=== PATIENT | female | born 1990 | race Caucasian/White ===

== ENCOUNTER 2023-06-08 20:58 | Emergency (ER) | payer OTHER, SELFPAY ==
[2023-06-08 21:07] VITALS: BP 134/88; PULSE 93; RESP 20; TEMP 36.6; O2SAT 97; BMI 43.4
--- NOTE | 2023-06-08 23:32 | ED.BACK1 ---
HPI - Back Pain/Injury General Chief Complaint: Back Pain/Injury Stated Complaint: BACK INJURY Time Seen by Provider: 06/08/23 23:27 Source: patient Mode of arrival: walk-in Limitations: no limitations History of Present Illness HPI Narrative: She presents emergency department complaining of left lumbosacral sacral pain. She states she starting in the [employer] and she lifted up a heavy box approximately 50 pounds and she is rotated with Pete to set it in another place and since then developed pain to the left lumbosacral region. Patient states the pain radiates to her leg at times. She has taken [id number] medications without any relief. She denies any urinary, bowel incontinence, retention. She denies any fall or direct trauma to her back. She denies any fever, or chills. She denies any flank pain, hematuria, dysuria. Patient denies any lower extremity weakness. She denies any nausea, vomiting, diarrhea, constipation, or abdominal pain. She denies any chest, shortness of breath. She denies any upper respiratory infection symptoms. Related Data Home Medications Medication Instructions Recorded Confirmed lamotrigine 250 mg tablet,extended 250 mg PO DAILY 06/08/23 06/08/23 release 24 hr (Lamictal XR) lurasidone 120 mg tablet (Latuda) 120 mg PO DAILY 06/08/23 06/08/23 prazosin 2 mg capsule (Minipress) 2 mg PO DAILY 06/08/23 06/08/23 Previous Rx's Medication Instructions Recorded cyclobenzaprine 10 mg tablet 10 mg PO TID PRN muscle spasm 3 06/08/23 days #14 tabs ketorolac 10 mg tablet 10 mg PO Q8H PRN pain 5 days #14 06/08/23 tabs Allergies Allergy/AdvReac Type Severity Reaction Status Date / Time aripiprazole [From [facility]] Allergy tongue Verified 06/08/23 21:11 swells Review of Systems ROS Status of ROS 10 or more systems reviewed and unremarkable except as noted in history and below [facility] Social History Smoking status: Current every day smoker Exam Narrative Exam Narrative: Nurses notes and vital signs reviewed and patient is not hypoxic. General: Nontoxic, Well-appearing and in no apparent distress. Skin: Warm, dry, no pallor noted. No Rash Head: Normocephalic, atraumatic. Neck: Supple, non-tender. Eye: Pupils are equal, round and EOMI. No scleral icterus. Ears, Nose, Mouth, and Throat: TM clear, no posterior oropharynx erythema or nasal mucosal hypertrophy, uvula is mid-line Oral mucosa is moist Cardiovascular: Regular Rate and Rhythm without murmur, gallop or rub. Respiratory: No accessory muscle use or respiratory distress. Lungs are clear to auscultation, no wheezing, rales or rhonchi Chest Wall: no tenderness Back: No midline thoracic or lumbar vertebral tenderness. Tenderness to palpation to the lateral paraspinal muscles on the left and lumbosacral junction. No erythema, ecchymosis, signs of trauma, infection. No CVA tenderness Musculoskeletal: normal ROM, no calf or popliteal tenderness, no lower extremity edema/swelling GI: obese, Abdomen is soft, non-distended. Normal bowel sounds. No masses appreciated. No tenderness to palpation. No rebound, guarding, or rigidity noted. Neurological: A&O x4. No cranial nerve dysfunction observed. No truncal ataxia. Moves all extremities. Sensation intact. Psychiatric: Cooperative and interactive. Normal mood and affect. Constitutional Vital Signs, click to edit/add: Last Vital Signs Temp 97.8 F 06/08/23 21:07 Pulse 84 06/09/23 00:08 Resp 16 06/09/23 00:08 BP 134/88 06/09/23 00:08 Pulse Ox 95 06/09/23 00:08 O2 Del Method Room Air 06/09/23 00:08 Course Vital Signs Vital signs: Vital Signs Temperature 97.8 F 06/08/23 21:07 Pulse Rate 93 H 06/08/23 21:07 Respiratory Rate 20 06/08/23 21:07 Blood Pressure 134/88 06/08/23 21:07 Pulse Oximetry 97 06/08/23 21:07 Oxygen Delivery Method Room Air 06/08/23 21:07 Temperature 97.8 F 06/08/23 21:07 Pulse Rate 84 06/09/23 00:08 Respiratory Rate 16 06/09/23 00:08 Blood Pressure 134/88 06/09/23 00:08 Pulse Oximetry 95 06/09/23 00:08 Oxygen Delivery Method Room Air 06/09/23 00:08 MDM - Back Pain/Injury MDM Narrative Medical decision making narrative: Patient is given an injection of Toradol, and Norflex. She will be discharged home on Toradol and Flexeril as needed. Patient will be able to go back to work with 10-20 pound lifting restriction. She is to follow up with occupational health. There is no clinical indication for radiologic studies at this time. The patient does not have any signs of cord compression, or Cauda equina syndrome. At this time the patient is without objective evidence of an acute process requiring hospitalization or inpatient management. The patient has remained hemodynamically stable. No additional indication for emergent studies at this time. I answered all questions. Discussed discharge instructions including standard anticipatory guidance and what should prompt a return to the emergency department, including if they get worse are not getting better or develops any new or concerning symptoms. I've given them specific time frame in which to follow-up, and who to follow-up with. The patient demonstrates understanding. Patient is nontoxic and stable for discharge with outpatient follow-up. This note was created with the assistance of a speech recognition program. Although the intention is to generate documents that actually reflects the content of the visit, no guarantees can be provided that every mistake has been identified and corrected by editing. Discharge Plan Discharge Chief Complaint: Back Pain/Injury Clinical Impression: Strain of lumbar region Patient Disposition: Home, Self-Care Time of Disposition Decision: 23:38 Condition: Good Mode of Transportation: Private Vehicle Prescriptions / Home Meds: New ketorolac 10 mg tablet 10 mg PO Q8H PRN (Reason: pain) 5 Days Qty: 14 0RF cyclobenzaprine 10 mg tablet 10 mg PO TID PRN (Reason: muscle spasm) 3 Days Qty: 14 0RF No Action lurasidone [Latuda] 120 mg tablet 120 mg PO DAILY Rx Instructions: must administer with food (at least 350 calories) lamotrigine [Lamictal XR] 250 mg tablet extended release 24hr 250 mg PO DAILY prazosin [Minipress] 2 mg capsule 2 mg PO DAILY Instructions: Low Back Strain (ED) Stand Alone Forms: Portal Instructions Referrals: Occupational Therapy,Template, OT [Occupational Therapist] - 1 week Discharge Date/Time: 06/09/23 00:10
[2023-06-09] MEDS: ORPHENADRINE 60 MG/ 2 ML VIAL IM (00:03)
[2023-06-09] MEDS: KETOROLAC TROMETHAMINE 60 MG/2 ML VIAL IM (00:03)
[2023-06-09 00:08] VITALS: BP 134/88; PULSE 84; RESP 16; O2SAT 95
== END 2023-06-09 00:10 | disposition home or self-care (01) ==
PROVIDERS: Emergency Provider Emergency Medicine
DX: S39.012A Strain of muscle, fascia and tendon of lower back, initial encounter (principal); X50.0XXA Overexertion from strenuous movement or load, initial encounter
CPT/HCPCS: 96372; 99284

== ENCOUNTER 2023-07-11 19:11 | Emergency (ER) | payer OTHER, SELFPAY ==
[2023-07-11 19:18] VITALS: BP 146/102; PULSE 92; RESP 16; TEMP 36.7; O2SAT 100; BMI 39.9
--- NOTE | 2023-07-11 20:31 | CT_ITS ---
The [address] [address] Patient Name: ANNAMARIA GARCIA MRN: [facility]:[id number] date: 1990 Sex: F Assigned Patient Location: ER Current Patient Location: ER Accession/Order Number: [id number] Exam Date: 07/11/2023 20:45 Report Date: 07/11/2023 21:32 At the request of: LUIS GUILLERMO Procedure: CT lumbar spine wo con EXAM: CT lumbar spine wo con HISTORY: Lumbar radiculopathy COMPARISON: None. TECHNIQUE: Axial CT imaging is performed. Sagittal and coronal reformatted/reconstructed sequences were additionally performed. FINDINGS: Maintenance of the normal lumbar lordosis. Vertebral body heights and alignments exhibit no fracture or listhesis. Small annular bulges at L4-L5 and L5-S1. Calcification of the posterior annulus at L4-L5. At L5-S1, there is mild intervertebral disc space narrowing, endplate osteophytes and calcification of the posterior annulus. Mild narrowing of the left L5-S1 subarticular recess. No prevertebral soft tissue edema. The sacroiliac joints are unremarkable. IUD within the pelvis. No visualized free fluid or air. The visualized bowel is unremarkable. The visualized lung bases exhibit no gross abnormality. CT/CT lumbar spine wo con IMPRESSION: Chronic changes with no gross visualized acute irregularity. Electronically authenticated by: PRADEEP OWENS Date: 07/11/2023 21:32
--- NOTE | 2023-07-11 20:32 | ED.BACK1 ---
HPI - Back Pain/Injury General Chief Complaint: Back Pain/Injury Stated Complaint: Back Pain Time Seen by Provider: 07/11/23 20:24 Source: patient Mode of arrival: walk-in Limitations: no limitations History of Present Illness HPI Narrative: patient is a 32-year-old female presents to the emergency department for continued pain in the lumbar spine radiating to the thoracic spine. Patient was seen in this emergency department one month ago after she hurt her back lifting and twisting at work. She denies any falls or direct injuries. She was prescribed Flexeril and Toradol. She states she went back to work at the same level of activity she was doing before her injury. She states for the last week she has had an increase in pain. No new injuries or falls. She states the pain radiates down the back of her legs with occasional tingling of the toes. She is not concerned for . No medications taken prior to arrival this evening, she has been applying ice and heat without improvement. She does have an open Worker's Comp. case for this. she has had no abdominal pain, urinary symptoms or incontinence. Related Data Home Medications Medication Instructions Recorded Confirmed lamotrigine 250 mg tablet,extended 250 mg PO DAILY 06/08/23 06/08/23 release 24 hr (Lamictal XR) lurasidone 120 mg tablet (Latuda) 120 mg PO DAILY 06/08/23 06/08/23 prazosin 2 mg capsule (Minipress) 2 mg PO DAILY 06/08/23 06/08/23 Previous Rx's Medication Instructions Recorded cyclobenzaprine 10 mg tablet 10 mg PO TID PRN muscle spasm 3 06/08/23 days #14 tabs ketorolac 10 mg tablet 10 mg PO Q8H PRN pain 5 days #14 06/08/23 tabs hydrocodone 5 mg-acetaminophen 325 1 tab PO Q6H PRN pain #8 tabs 07/11/23 mg tablet methocarbamol 750 mg tablet 750 mg PO TID PRN pain #20 tabs 07/11/23 methylprednisolone 4 mg tablets in See Rx Instructions .Route 07/11/23 a dose pack (Medrol (Patrick)) .COMPLEX #21 ea Allergies Allergy/AdvReac Type Severity Reaction Status Date / Time aripiprazole [From [facility]] Allergy tongue Verified 06/08/23 21:11 swells Review of Systems ROS Constitutional Denies: fever or chills Ears, nose, mouth, and throat Denies: throat pain or neck pain Cardiovascular Denies: chest pain Respiratory Denies: shortness of breath or cough Gastrointestinal Denies: nausea or vomiting Genitourinary Denies: painful urination Musculoskeletal Reports: back pain; Denies: neck pain or extremity pain Neurological Denies: headache PFSH PFSH Social History Smoking status: Current every day smoker Exam Narrative Exam Narrative: Gen.: Awake, alert, in no distress Head: Normocephalic, atraumatic ENT: Moist mucous membranes Respiratory: No respiratory distress Extremities: Moves extremities equally, normal dorsiflexion and plantarflexion of the lower extremities, normal hip flexion bilaterally, no decrease in sensation to the medial thighs Back: Diffuse tenderness of the lumbar spine and paraspinal muscles with no bony point tenderness of the T-spine or L-spine, no obvious deformity or step-off Psych: Normal mood and affect Neuro: No focal neuro deficit Skin: Warm, dry, intact Constitutional Vital Signs, click to edit/add: Last Vital Signs Temp 98.1 F 07/11/23 19:18 Pulse 92 H 07/11/23 19:18 Resp 16 07/11/23 19:18 BP 146/102 H 07/11/23 19:18 Pulse Ox 100 07/11/23 19:18 O2 Del Method Room Air 07/11/23 19:18 Course Vital Signs Vital signs: Vital Signs Temperature 98.1 F 07/11/23 19:18 Pulse Rate 92 H 07/11/23 19:18 Respiratory Rate 16 07/11/23 19:18 Blood Pressure 146/102 H 07/11/23 19:18 Pulse Oximetry 100 07/11/23 19:18 Oxygen Delivery Method Room Air 07/11/23 19:18 Temperature 98.1 F 07/11/23 19:18 Pulse Rate 92 H 07/11/23 19:18 Respiratory Rate 16 07/11/23 19:18 Blood Pressure 146/102 H 07/11/23 19:18 Pulse Oximetry 100 07/11/23 19:18 Oxygen Delivery Method Room Air 07/11/23 19:18 MDM - Back Pain/Injury MDM Narrative Medical decision making narrative: patient was treated for symptoms in the Emergency Room, CT of the lumbar spine shows multiple areas of bulging in the lumbar spine with no evidence of acute process. Patient will be discharged home with treatment for lumbar radiculopathy and low back pain. Follow-up with occupational health and return to the emergency department if symptoms change or worsen. patient with a normal neuro exam, she is started on a Medrol Dosepak, Robaxin, short course of analgesics. Medical Records Attestation: I reviewed the patient's medical records. Imaging Data CT lumbar spine: Attestation: I have reviewed the pertinent imaging results. Radiologist's impression: Procedure: CT lumbar spine wo con EXAM: CT lumbar spine wo con HISTORY: Lumbar radiculopathy COMPARISON: None. TECHNIQUE: Axial CT imaging is performed. Sagittal and coronal reformatted/reconstructed sequences were additionally performed. FINDINGS: Maintenance of the normal lumbar lordosis. Vertebral body heights and alignments exhibit no fracture or listhesis. Small annular bulges at L4-L5 and L5-S1. Calcification of the posterior annulus at L4-L5. At L5-S1, there is mild intervertebral disc space narrowing, endplate osteophytes and calcification of the posterior annulus. Mild narrowing of the left L5-S1 subarticular recess. No prevertebral soft tissue edema. The sacroiliac joints are unremarkable. IUD within the pelvis. No visualized free fluid or air. The visualized bowel is unremarkable. The visualized lung bases exhibit no gross abnormality. IMPRESSION: Chronic changes with no gross visualized acute irregularity. Electronically authenticated by: PRADEEP OWENS Date: 07/11/2023 21:32 Discharge Plan Discharge Chief Complaint: Back Pain/Injury Clinical Impression: Lumbar radiculopathy, Low back pain, Bilateral sciatica Patient Disposition: Home, Self-Care Time of Disposition Decision: 21:39 Condition: Good Prescriptions / Home Meds: New hydrocodone-acetaminophen 5-325 mg tablet 1 tab PO Q6H PRN (Reason: pain) Qty: 8 0RF Rx Instructions: DX: M54.5 methocarbamol 750 mg tablet 750 mg PO TID PRN (Reason: pain) Qty: 20 0RF methylprednisolone [Medrol (Patrick)] 4 mg tablets,dose pack See Rx Instructions .ROUTE .COMPLEX Qty: 21 0RF Rx Instructions: Taper as directed No Action lurasidone [Latuda] 120 mg tablet 120 mg PO DAILY Rx Instructions: must administer with food (at least 350 calories) lamotrigine [Lamictal XR] 250 mg tablet extended release 24hr 250 mg PO DAILY prazosin [Minipress] 2 mg capsule 2 mg PO DAILY ketorolac 10 mg tablet 10 mg PO Q8H PRN (Reason: pain) 5 Days Qty: 14 0RF cyclobenzaprine 10 mg tablet 10 mg PO TID PRN (Reason: muscle spasm) 3 Days Qty: 14 0RF Instructions: Sciatica (ED), Acute Low Back Pain (ED), Lumbar Radiculopathy (ED) Stand Alone Forms: Portal Instructions Referrals: [facility] [Outside] - 1 week Discharge Date/Time: 07/11/23 21:51
[2023-07-11] MEDS: METHYLPREDNISOLONE SOD SUCC PF 125 MG/2 ML VIAL IM (21:03)
[2023-07-11] MEDS: ORPHENADRINE 60 MG/ 2 ML VIAL IM (21:03)
== END 2023-07-11 21:51 | disposition home or self-care (01) ==
PROVIDERS: Emergency Provider Emergency Medicine
DX: M54.16 Radiculopathy, lumbar region (principal); M54.42 Lumbago with sciatica, left side; M54.41 Lumbago with sciatica, right side; Z79.899 Other long term (current) drug therapy; F17.210 Nicotine dependence, cigarettes, uncomplicated
CPT/HCPCS: 72131; 96372; 99285; J2930